=== PATIENT | male | born 1985 | race Two or more races ===

== ENCOUNTER 2018-01-20 23:09 | Emergency (ER) | payer OTHER ==
[~2018-01-20] VITALS: Ht 185.4 cm; Wt 127.0 kg
[2018-01-20 23:30] VITALS: BP 195/97
[2018-01-21] MEDS ORDERED: TRIAMCINOLONE 40MG/ML 1ML VIAL IM ONE (04:45)
[2018-01-21] MEDS ORDERED: MEPERIDINE HCL (50 MG/ML) 1 ML VIAL IM ONE (05:00)
== END 2018-01-21 05:31 | disposition home or self-care (01) ==
LOC: ER 23:13
DX: M54.42 Lumbago with sciatica, left side (principal)
CPT/HCPCS: 96372; 99283; J2175

== ENCOUNTER 2021-04-15 12:05 | Emergency (ER) | payer OTHER ==
[~2021-04-15] VITALS: Ht 185.4 cm; Wt 135.2 kg
[2021-04-15] MEDS ORDERED: HYDROcodone-ACET 10/325MG TAB PO ONE (12:30)
[2021-04-15 13:10] LABS: Urine Bacteria NONE SEEN /hpf (None Seen); Urine Blood 1+ /uL (Negative); Urine Hyaline Cast FEW /lpf (0 - 2); Urine Mucus FEW (None Seen); Urine Specific Gravity 1.014 (1.001-1.035); Urine WBC 2 /hpf (0 - 3)
[2021-04-15] MEDS ORDERED: DexAMETHasone SOD PHOS 10MG/1ML VIAL INJ IV ONE (15:30)
[2021-04-15 16:47] VITALS: BP 156/99
== END 2021-04-15 17:17 | disposition home or self-care (01) ==
LOC: ER 12:05
DX: G83.4 Cauda equina syndrome (principal); I10 Essential (primary) hypertension
CPT/HCPCS: 72148; 81001; 96374; 99284; J1100